=== PATIENT | female | born 1985 | race Two or more races ===

== ENCOUNTER 2022-10-06 22:00 | Emergency (ER) | payer OTHER ==
[~2022-10-06] VITALS: Ht 170.2 cm; Wt 63.5 kg
[2022-10-06] MEDS ORDERED: DICLOFENAC SODI75 MG PO (23:44)
== END 2022-10-07 | disposition home or self-care (01) ==
LOC: ER 22:00
DX: M94.0 Chondrocostal junction syndrome [Tietze] (principal)